=== PATIENT | male | born 1940 | race Caucasian/White ===

== ENCOUNTER → 2021-04-14 08:59 | Outpatient (CLI) | payer MEDICARE, OTHER, SELFPAY ==
[2021-04-14 10:52] LABS: COVID19 -Nasal RAPID Negative (Negative)
== END ==
PROVIDERS: Family Provider Family Medicine; PCP Family Medicine; Referring Provider Internal Medicine; Visit Provider Internal Medicine
DX: Z20.822 Contact with and (suspected) exposure to COVID-19 (principal)
CPT/HCPCS: 87635; C9803

== ENCOUNTER → 2021-04-14 09:03 | Outpatient (CLI) | payer MEDICARE, OTHER, SELFPAY ==
--- NOTE | 2021-04-19 09:41 | PM.PFT.1 ---
Pulmonary Function Test Referral & Results Date Patient Seen: 04/14/21 Requesting provider: Colin Saab Results: The spirometry demonstrates an FVC of 2.83 L which is 72% of predicted. The FEV1 was measured at 2.38 L which is 86% of predicted. The FEV1/FVC ratio was 84 which is 118% of predicted. No bronchodilator was administered. Lung volumes show an SVC of 2.97 L which is 60% of predicted. The diffusing capacity was measured at 17.32 which is 53% of predicted. No hemoglobin value was provided, so no correction for potential anemia could be made, if appropriate. The maximum voluntary ventilation was normal Interpretation: This study demonstrates moderate reduction in lung volumes suggesting restrictive lung disease is present in addition there is a moderate reduction diffusing capacity suggesting disease at the capillary alveolar level
== END ==
PROVIDERS: Family Provider Family Medicine; PCP Family Medicine; Referring Provider Internal Medicine Pulmonary Disease; Visit Provider Internal Medicine Pulmonary Disease
DX: I63.40 Cerebral infarction due to embolism of unspecified cerebral artery (principal); I48.21 Permanent atrial fibrillation; Z20.822 Contact with and (suspected) exposure to COVID-19; J98.8 Other specified respiratory disorders; I51.89 Other ill-defined heart diseases; I10 Essential (primary) hypertension; C15.5 Malignant neoplasm of lower third of esophagus; M16.11 Unilateral primary osteoarthritis, right hip; C82.99 Follicular lymphoma, unspecified, extranodal and solid organ sites; R06.00 Dyspnea, unspecified; Z01.818 Encounter for other preprocedural examination
CPT/HCPCS: 71046; 87635; 94010; 94726; 94729; C9803

== ENCOUNTER → 2021-04-14 09:07 | Outpatient (CLI) | payer MEDICARE, OTHER, SELFPAY ==
--- NOTE | 2021-04-14 | DI.RAD.S_ITS ---
PROCEDURE: XR CHEST 2V INDICATIONS: PREOP TECHNIQUE: 2 views of the chest were acquired. COMPARISON: None. FINDINGS: Surgical changes and devices: None. Lungs and pleura: Lungs volumes are low and lungs are clear. No pleural effusions or pneumothorax. Mediastinum: Mediastinal contours are normal. Heart size is normal. Bones and chest wall: Healed right 5th, 6th and 7th posterior lateral rib fractures. No suspicious bony abnormalities. Soft tissues appear unremarkable. Status post multiple vertebroplasties. IMPRESSION: Expiratory chest demonstrating no definitive acute cardiopulmonary disease. Dictated by: Salvador Lujan [facility] Interpreted: Hugo Montague MD on 04/14/2021 at 9:51 Transcribed by: SHEILA on 04/14/2021 at 9:54 Approved by: Hugo Montague M.D. on 04/14/2021 at 12:30
== END ==
PROVIDERS: Family Provider Family Medicine; PCP Physician Assistant Medical; Referring Provider Internal Medicine Pulmonary Disease; Visit Provider Internal Medicine Pulmonary Disease
DX: Z01.818 Encounter for other preprocedural examination (principal); R06.00 Dyspnea, unspecified; C15.5 Malignant neoplasm of lower third of esophagus; C82.89 Other types of follicular lymphoma, extranodal and solid organ sites; I63.40 Cerebral infarction due to embolism of unspecified cerebral artery; I48.21 Permanent atrial fibrillation; I51.89 Other ill-defined heart diseases; I10 Essential (primary) hypertension; M16.11 Unilateral primary osteoarthritis, right hip
CPT/HCPCS: 71046